=== PATIENT | male | born 1985 | race African-American/Black ===

== ENCOUNTER 2022-05-18 18:57 | Emergency (ER) | payer MEDICAID ==
[~2022-05-18] VITALS: Ht 190.5 cm; Wt 97.7 kg
[2022-05-18 19:22] VITALS: BP 142/93
== END 2022-05-18 22:00 | disposition left against medical advice (07) ==
LOC: ER 18:57
DX: Z53.21 Procedure and treatment not carried out due to patient leaving prior to being seen by health care provider (principal)